=== PATIENT | female | born 1965 | race Caucasian/White ===

== ENCOUNTER → 2019-05-06 | Outpatient (CLI) | payer OTHER ==
--- NOTE | 2019-05-06 14:50 | 2DMMODE ---
[facility] [place] [address] [place] [address] 2 D/M-MODE ECHOCARDIOGRAM Name: ROSARIO COBSY Room #: REG [facility]#: [id number] ������������� Admission: 05/06/19 ������������� Attend Phys: Hector Fernandez MD Discharge: ��� ������������� ��� Date of : 67 Date of Service: 05/06/19 1450 �� Report #: [id number] �������� ��������������������������������������������[id number] THIS REPORT FOR: //name// APPROVED REPORT Study performed: 05/06/2019 12:37:17 EXAM: Comprehensive 2D, Doppler, and color-flow Echocardiogram Patient Location: Echo lab Status: routine BSA: 1.84 HR: 45 bpm BP: 110/62 mmHg Other Information Study Quality: Adequate Indications Bradycardia 2D Dimensions RVDd: 38.67 mm IVSd: 10.89 (7-11mm) LVOT Diam: 23.86 (18-24mm) LVDd: 38.12 mm PWd: 8.27 (7-11mm) Ascending Ao: 28.38 (22-36mm) LVDs: 27.62 (25-40mm) Aortic Root: 30.71 mm IVC: 14.00 mm Volumes Left Atrial Volume (Systole) Single Plane 4CH: 33.49 mL Single Plane 2CH: 67.40 mL LA ESV Index: 32.00 mL/m2 Aortic Valve AoV Peak Christian.: 1.32 m/s AO Peak Gr.: 7.00 mmHg LVOT Max P.27 mmHg LVOT Max V: 1.15 m/s KATHIE Vmax: 3.88 cm2 AI Vmax: 4.35 m/s AI [place]: 1.45 m/s2 AI PHT: 866.86 ms Mitral Valve E/A Ratio: 3.0 [facility] [place] [place] [address] 2 D/M-MODE ECHOCARDIOGRAM Name: HARJEETROSARIO Gray Room #: REG [facility]#: [id number] ������������� Admission: 05/06/19 ������������� Attend Phys: Hector Fernandez MD Discharge: ��� ������������� ��� Date of : 67 Date of Service: 05/06/19 1450 �� Report #: [id number] �������� ��������������������������������������������[id number] MV Decel. Time: 243.62 ms MV E Max Christian.: 1.18 m/s MV A Christian.: 0.39 m/s MV PHT: 70.65 ms IVRT: 101.50 ms Pulmonary Valve PV Peak Christian.: 0.88 m/s PV Peak Gr.: 3.07 mmHg Pulmonary Vein P Vein S: 0.60 m/s P Vein A: 0.29 m/s P Vein D: 0.50 m/s P Vein A Dur.: 189.2 msec P Vein S/D Ratio: 1.20 Tricuspid Valve TR Peak Christian.: 2.16 m/s RAP Estimate: 5.00 mmHg TR Peak Gr.: 18.65 mmHg PA Pressure: 24.00 mmHg Left Ventricle The left ventricle is normal size. There is normal left ventricular wall thickness. The left ventricular systolic function is normal. The left ventricular ejection fraction is within the normal range. LVEF is 60%. The left ventricular diastolic function is normal. Right Ventricle The right ventricle is normal size. The right ventricular systolic function is normal. Atria The left atrium size is normal. The right atrium size is normal. Aortic Valve The aortic valve is normal in structure. Mild aortic regurgitation. There is no aortic valvular stenosis. Mitral Valve The mitral valve is normal in structure. Mild mitral regurgitation. No evidence of mitral valve stenosis. Tricuspid Valve The tricuspid valve is normal in structure. Trace to mild tricuspid regurgitation. PAP is estimated at 24 mmHg. Pulmonic Valve [address] [address] 2 D/M-MODE ECHOCARDIOGRAM Name: HARJEETROSARIO Room #: REG [facility]#: [id number] ������������� Admission: 05/06/19 ������������� Attend Phys: Hector Fernandez MD Discharge: ��� ������������� ��� Date of : 67 Date of Service: 05/06/19 1450 �� Report #: [id number] �������� ��������������������������������������������[id number] The pulmonary valve is normal in structure. Trace pulmonic regurgitation. Great Vessels The aortic root is normal in size. IVC is normal in size and collapses >50% with inspiration. Pericardium There is no pericardial effusion. <Conclusion> The left ventricle is normal size. There is normal left ventricular wall thickness. The left ventricular systolic function is normal. The right ventricle is normal size. The left atrium size is normal. Mild aortic regurgitation. Mild mitral regurgitation. Trace to mild tricuspid regurgitation. PAP is estimated at 24 mmHg. ��������������������������������������������� <ELECTRONICALLY SIGNED> ���������������������������������������� By: Hector Fernandez MD ��������������������������������������������� 05/06/19 1450 1450 1450 Hector Fernandez MD /INF
--- NOTE | 2019-05-06 14:53 | EXE ---
[facility] [address] [place] [address] STRESS ECHOCARDIOGRAM Name: ROSARIO COSBY Room #: REG [facility]#: [id number] ������������� Admission: 05/06/19 ������������� Attend Phys: Hector Fernandez MD Discharge: ��� ������������� ��� Date of : 67 Date of Service: 05/06/19 1452 �� Report #: [id number] �������� ��������������������������������������������[id number] THIS REPORT FOR: //name// APPROVED REPORT Study performed: 05/06/2019 13:23:54 Exam: Stress Echocardiogram Indication: Dyspnea/bradycardia Patient Location: Echo lab Stress Nurse: Lakeshia Steel RN Status: routine Ht: 5 ft 6 in HR: 45 bpm BP: 110/62 mmHg Medical History Medical History: No history of CAD Cardiac Risk Factors: FHX of CAD Pretest Chest Pain Characteristics: No chest pain Exercise History: Physically active Procedure The patient underwent an Exercise Stress Test using the Crow Protocol. Blood pressure, heart rate, and EKG were monitored. An Echocardiogram was performed by dental technician apprentice in four stages in quad fashion. At peak stress, four selected images were obtained and placed side by side with resting images for comparison. Stress Test Details Stress Test: Exercise stress testing was performed using a Crow protocol. HR Resting HR: 45 bpm Max Heart Rate (APMHR): 167 bpm Max HR Achieved: 169 bpm Target HR (85% APMHR): 141 bpm % of APMHR: 101 Recovery HR: 75 bpm HR response to stress: Normal HR response to stress BP Resting BP: 110/62 mmHg Max BP: 150/74 mmHg Recovery BP: 128/70 mmHg BP response to stress: Normal blood pressure response to stress. [facility] [address] [place] [address] STRESS ECHOCARDIOGRAM Name: ROSARIO COSBY Room #: REG [facility]#: [id number] ������������� Admission: 05/06/19 ������������� Attend Phys: Hector Fernandez MD Discharge: ��� ������������� ��� Date of : 67 Date of Service: 05/06/19 1452 �� Report #: [id number] �������� ��������������������������������������������[id number] ECG Resting ECG: Sinus Rhythm Stress ECG: Sinus Rhythm, nonspecific ST-T abnormalities ST Change: Non-ischemic Clinical Reason for Termination: Completed protoco, Maximal effort Exercise duration: 13 min 00 sec Highest Stage Achieved: Stage 5: 5.0 mph at 18% grade. Exercise capacity: 17.50 METs Overall Exercise Capacity for Age: Excellent Pre-Stress Echo The resting Echocardiogram showed normal left ventricular contractility with an estimated Ejection Fraction of about 55-60%. The resting echocardiogram demonstrated normal wall motion in all wall segments. Normal wall motion in all segments on baseline images. Post-Stress Echo The stress Echocardiogram showed normal left ventricular contractility with an estimated Ejection Fraction of about 65-70%. Compared to rest, there were no stress-induced wall motion abnormalities. Normal augmentation of wall motion in all segments on post stress images. Clinical No clinical or ECG evidence for ischemia. Conclusion Clinical Response: Non-ischemic Exercise Capacity: Superior Stress ECG Response: Non-ischemic Stress Echo Images: Non-ischemic The left ventricle is normal in size and wall thickness in both the rest and stress images. Other Information Study Quality: Good <Conclusion> [facility] [address] [place] [address] STRESS ECHOCARDIOGRAM Name: ROSARIO COSBY Room #: REG [facility]#: [id number] ������������� Admission: 05/06/19 ������������� Attend Phys: Hector Fernandez MD Discharge: ��� ������������� ��� Date of : 67 Date of Service: 05/06/191451 �� Report #: [id number] �������� ��������������������������������������������[id number] The left ventricle is normal in size and wall thickness in both the rest and stress images. ��������������������������������������������� <ELECTRONICALLY SIGNED> ���������������������������������������� By: Hector Fernandez MD ��������������������������������������������� 05/06/191451 51 51 Hector Fernandez MD /INF
== END ==
LOC: CV 10:42
DX: I08.3 Combined rheumatic disorders of mitral, aortic and tricuspid valves (principal)